=== PATIENT | male | born 1960 | race Caucasian/White ===

== ENCOUNTER 2023-02-09 06:20 | Day surgery (SDC) | payer OTHER ==
[2023-02-09] MEDS ORDERED: LACTATED RINGERS 1,000 ML IV ONE (06:36)
[2023-02-09] MEDS ORDERED: PROPOFOL 500 MG/50 ML 500 MG/50 ML VIAL ONE (07:04)
[2023-02-09] MEDS ORDERED: fentaNYL 100 MCG/2 ML VIAL IVP PRN (07:13)
[2023-02-09] MEDS ORDERED: HYDROmorphone 0.5 MG/0.5 ML SYRINGE IVP PRN (07:13)
[2023-02-09] MEDS ORDERED: NALOXONE 0.4 MG/ML VIAL IVP PRN (07:13)
[2023-02-09] MEDS ORDERED: ONDANSETRON 4 MG/2 ML VIAL IVP PRN (07:13)
[2023-02-09] MEDS ORDERED: ePHEDrine 50 MG/ML VIAL IVP PRN (07:13)
[2023-02-09] MEDS ORDERED: ATROPINE ABBOJECT 1 MG/10 ML SYRINGE IVP PRN (07:13)
--- NOTE | 2023-02-09 07:13 | ANESTHESIA ---
Pre-Anesthesia VS, & Labs - Diagnosis screening - Procedure colonoscopy Vital Signs: Temp Pulse Resp BP Pulse Ox O2 Flow Rate 36.2 C L 80 16 125/80 99 0 02/09/23 06:39 02/09/23 06:39 02/09/23 06:39 02/09/23 06:39 02/09/23 06:39 02/09/23 06:39 Height: 6 ft Weight (kg): 83 kg Body Mass Index: 24.7 BMI Classification: Normal - NPO >8 hours - Lab Results Current Lab Results: Laboratory Tests 02/09/23 06:41: POC Whole Bld Glucose 195 H Home Medications and Allergies Home Medications: Ambulatory Orders Ascorbic Acid [Vitamin C] 1 cap PO DAILY 02/08/23 Biotin 1 tab PO DAILY 02/08/23 Cholecalciferol (Vitamin D3) [Vitamin D3] 1 cap PO DAILY 02/08/23 Insulin Glargine [Lantus Solostar] 26 unit SUBQ DAILY 02/08/23 metFORMIN [Glucophage] 1 tab PO DAILY 02/08/23 Ascorbic Acid [Vitamin C] 1 cap PO DAILY 02/08/23 Biotin 1 tab PO DAILY 02/08/23 Cholecalciferol (Vitamin D3) [Vitamin D3] 1 cap PO DAILY 02/08/23 Insulin Glargine [Lantus Solostar] 26 unit SUBQ DAILY 02/08/23 metFORMIN [Glucophage] 1 tab PO DAILY 02/08/23 Allergies/Adverse Reactions: Allergies Allergy/AdvReac Type Severity Reaction Status Date / Time lisinopril AdvReac Respiratory Verified 02/08/23 12:27 Anes History & Medical History - Anesthetic History Anesthesia Complications: reports: No previous complications Family history of Anesthesia Complications: Denies Family history of Malignant Hyperthermia: Denies - Medical History Cardiovascular: reports: None Pulmonary: reports: None Gastrointestinal: reports: None Urinary: reports: None Neuro: reports: None Musculoskeletal: reports: None Endocrine/Autoimmune: reports: Type 2 diabetes Blood Disorders: reports: None Skin: reports: None Smoking Status: Never smoker - Surgical History Cardiothoracic: reports: Other Exam General: Alert, Oriented x3, Cooperative Dental: WNL Mouth Openin Fingerbreadth Neck Mobility: Normal Mallampati classification: II Thyromental Distance: 4-6 cm Respiratory: Lungs clear Cardiovascular: Regular rate Plan Anesthesia Type: MAC Consent for Procedure(s) Verified and Reviewed: Yes Code Status: Attempt Resuscitation ASA classification: 2-Mild systemic disease Is this case an emergency?: No
[2023-02-09] MEDS ORDERED: PROPOFOL 200 MG/20 ML VIAL IVP ONE (07:51)
[2023-02-09] MEDS ORDERED: LACTATED RINGERS 1,000 ML IV SCH (08:00)
[2023-02-09] MEDS ORDERED: LACTATED RINGERS 450 ML IV ONE (08:01)
[2023-02-09 09:00] VITALS: BP 114/66
--- NOTE | 2023-02-09 14:04 | ANESTHESIA POST OP EVALUATION ---
Anesthesia Post Eval - Post Anesthesia Eval Vitals: Last Vital Signs Temp 36.0 C L 02/09/23 08:45 Pulse 72 02/09/23 08:45 Resp 16 02/09/23 08:45 BP 114/66 02/09/23 08:45 Pulse Ox 96 02/09/23 08:45 O2 Flow Rate 0 02/09/23 06:39 CV Function Including HR & BP: Stable Pain Control: Satisfactory Nausea & Vomiting: Negative Mental Status: Baseline Respiratory Status: Airway Patent Hydration Status: Satisfactory Anesthesia Complications: None
== END 2023-02-09 06:21 | disposition home or self-care (01) ==
LOC: SDS 06:20
PROVIDERS: ATTEND Surgery
PROC: 0DBH8ZZ Excision of Cecum, Via Natural or Artificial Opening Endoscopic (ICD-10-PCS; 2023-02-09)
PROC: 0DBK8ZZ Excision of Ascending Colon, Via Natural or Artificial Opening Endoscopic (ICD-10-PCS; principal; 2023-02-09 07:30)
DX: Z12.11 Encounter for screening for malignant neoplasm of colon (principal); D12.0 Benign neoplasm of cecum; D12.2 Benign neoplasm of ascending colon; E11.9 Type 2 diabetes mellitus without complications; Z79.84 Long term (current) use of oral hypoglycemic drugs; Z79.4 Long term (current) use of insulin
CPT/HCPCS: 45380; J7120